=== PATIENT | female | born 1965 | race American Indian/Alaskan Native ===

== ENCOUNTER 2017-10-19 10:28 | Day surgery (SDC) | payer BC ==
[2017-10-18 09:10] VITALS: BMI 57.6
[2017-10-19 11:14] LABS: BASO # 0.02 K/mm3 (0.0-2.0); BASO % 0.3 % (0.0-3.0); EOS # 0.1 (0.0-0.7); EOS % 1.7 % (1.5-5.0); GRAN # 3.73 (1.4-6.5); HEMOGLOBIN 12.4 g/dL (12.0-16.0); LYMPH # 1.7 (1.2-3.4); LYMPH % 28.2 % (22.0-35.0); MEAN CORPUSCULAR HEMOGLOBIN 26.8 pg (25.0-35.0); MEAN CORPUSCULAR HGB CONC 32.7 g/dl (31.0-37.0); MEAN PLATELET VOLUME 9.9 fl (7.0-11.0); MONO # 0.4 (0.1-0.6); MONO % 6.8 % (1.0-6.0); RBC 4.62 10^6/uL (3.5-6.1); WHITE BLOOD COUNT 5.9 10^3/ul (4.5-11.0)
[2017-10-19 11:24] LABS: BLOOD UREA NITROGEN 13 mg/dL (7-21); CALCIUM 9.3 mg/dL (8.4-10.5); GFR NON-AFRICAN AMERICAN > 60
[2017-10-19 11:25] LABS: INR 0.98; PARTIAL THROMBOPLASTIN TIME 33.6 Seconds (25.1-36.5); PROTHROMBIN TIME 11.3 SECONDS (9.4-12.5)
[2017-10-19] MEDS ORDERED: Lidocaine Hydrochloride 1% 10 ML ONE (14:44)
[2017-10-19] MEDS ORDERED: Midazolam 2 MG/2 ML VIAL ONE (15:15)
[2017-10-19] MEDS ORDERED: Oxycodone/Acetaminophen 5/325 mg Tab PO PRN (15:43)
[2017-10-19] MEDS ORDERED: Sodium Chloride 0.45% 1,000 ML IV SCH (15:45)
[2017-10-19] MEDS ORDERED: Midazolam 2 MG/2 ML VIAL IVP ONE (16:24)
[2017-10-19 17:07] VITALS: TEMP 97.7; O2SAT 98
--- NOTE | 2017-10-19 18:06 | US ---
PROCEDURE: Ultrasound-guided right thyroid fine needle aspiration biopsy. CLINICAL HISTORY: Goiter. Dominant 3-4 cm hypervascular right thyroid nodule evaluate for malignancy PHYSICIAN(S): Hansel Quan M.D. TECHNIQUE: The relative risks and indications for the procedure were explained to the patient and consent obtained. The patient was placed supine on the stretcher with the neck extended and preliminary sonography of the thyroid performed. This reveal a dominant 3-4 cm hypoechoic hypervascular nodule in the mid to lower right thyroid. Multiple additional smaller nodules are present. The neck was prepped and draped in the usual sterile fashion. Conscious sedation and monitoring were provided throughout the procedure by a nurse. 1% Xylocaine was used to anesthetize the skin and soft tissues at the access site. Three passes with a 22-gauge needle were performed under ultrasound guidance for fine needle aspiration of the 3-4 cm hypoechoic nodule in the right thyroid. The slides were reviewed by pathology and deemed adequate. The patient tolerated the procedure well. IMPRESSION: 1. Ultrasound guided fine needle aspiration of a 3-4 cm hypoechoicnodule in the right thyroid.
[2017-10-19 18:13] VITALS: BP 117/66; PULSE 64; RESP 20
== END 2017-10-19 18:20 | disposition home or self-care (01) ==
LOC: SDS 10:28
PROVIDERS: ATTEND Radiology Vascular & Interventional Radiology
DX: E04.1 Nontoxic single thyroid nodule (principal)
CPT/HCPCS: 10022; 36415; 76942; 80048; 84703; 85025; 85610; 85730; 88173; 88305; 99152; J2250; J2405; J3010; J7030